=== PATIENT | male | born 1965 | race Caucasian/White ===

== ENCOUNTER → 2021-02-14 | Outpatient (CLI) | payer BC | LOC: M SMT PRO 10:17 | PROVIDERS: ATTEND Urology | DX: Z53.9 Procedure and treatment not carried out, unspecified reason (principal) ==

== ENCOUNTER → 2021-03-07 | Outpatient (CLI) | payer BC ==
--- NOTE | 2021-03-07 12:07 | REPPI ---
INDICATION: elevated PSA. COMPARISON: None. TECHNIQUE: Transrectal prostate ultrasound performed, with ultrasound guidance provided for Dr. Martinez who performed ultrasound-guided biopsy. FINDINGS: Prostate measures 4.1 x 3.6 x 5.8 cm, total volume 43.7 mL. Echotexture is heterogeneous with scattered cysts and calcifications. No focal mass is seen. Seminal vesicles appear symmetrical. IMPRESSION: Prostate ultrasound as above, ultrasound guidance was provided for Dr. Martinez who performed ultrasound-guided biopsy of the prostate. <Electronically signed by Galileo Patel > 03/07/21 [id number]
== END ==
LOC: M SMT PRO 09:28
PROVIDERS: ATTEND Urology
DX: C61 Malignant neoplasm of prostate (principal)
CPT/HCPCS: 76872; 76942; G0416

== ENCOUNTER → 2022-05-08 | Outpatient (REF) | payer BC | LOC: M SMT 13:35 | PROVIDERS: ATTEND Urology | DX: C61 Malignant neoplasm of prostate (principal) ==

== ENCOUNTER → 2023-07-02 | Outpatient (REF) | payer BC, OTHER | LOC: M SMT PRO 15:36 | PROVIDERS: ATTEND Urology | DX: C61 Malignant neoplasm of prostate (principal) ==